=== PATIENT | female | born 1970 | race Caucasian/White ===

== ENCOUNTER 2020-09-01 16:29 | Emergency (ER) | payer BC ==
[~2020-09-01] VITALS: Ht 172.7 cm; Wt 117.9 kg
[2020-09-01 17:07] LABS: ABSOLUTE NEUTROPHILS 3.2 thou/uL (1.6-8.1); HEMOGLOBIN 14.1 gm/dL (12.0-15.0); NUCLEATED RBCS 0 /100WBC
[2020-09-01 17:11] LABS: ABSOLUTE EOSINOPHILS 0.2 thou/uL (0.0-0.7); ABSOLUTE LYMPHOCYTES 3.1 thou/uL (0.8-5.3); ABSOLUTE MONOCYTES 0.5 thou/uL (0.0-1.2); BASOPHILS 0.6 %; EOSINOPHILS 2.6 %; HEMATOCRIT 40.4 % (37.0-47.0); MCH 29.5 pg (26.0-34.0); MCHC 34.9 g/dL (28.0-37.0); MCV 84.6 fL (80.0-100.0); MONOCYTES 6.6 %; MPV 8.1 fl. (7.2-11.1); PLATELET COUNT* 325 thou/uL (150-400); POLYS 46.2 %; RBC 4.78 mil/uL (4.20-5.00)
[2020-09-01] MEDS ORDERED: PRAVACHOL40 MG PO (17:13)
[2020-09-01] MEDS ORDERED: ESCITALOPRAM (17:13)
[2020-09-01] MEDS ORDERED: BENAZEPRIL-HCT1 EA12 PO (17:13)
[2020-09-01] MEDS ORDERED: OMEPRAZOLE 20 M20 M1 PO (17:13)
[2020-09-01] MEDS ORDERED: METFORMIN HCL500 M3 PO (17:14)
[2020-09-01] MEDS ORDERED: BUSPIRONE HCL10 MG PO (17:14)
[2020-09-01 17:20] LABS: APTT 25.4 Seconds (25.0-31.3); INR 0.9; PROTIME 9.8 Seconds (9.20-11.50)
[2020-09-01 17:29] LABS: CALCIUM 8.7 mg/dL (8.5-10.1); POTASSIUM 3.5 mmol/L (3.5-5.1)
[2020-09-01 17:36] LABS: ALBUMIN 3.5 g/dL (3.4-5.0); TOTAL BILIRUBIN 0.3 mg/dL (<0.1-1.0); TOTAL PROTEIN 7.4 g/dL (6.4-8.2)
[2020-09-01] MEDS ORDERED: ACCU-CHEK COMB1 EACH SUBQ (18:15)
[2020-09-01] MEDS ORDERED: PREDNISONE 20 M20 M1 PO (19:48)
[2020-09-01] MEDS ORDERED: VENTOLIN HFA 1818 GM INH (19:48)
[2020-09-01] MEDS ORDERED: ZPAK PO (19:48)
[2020-09-01] MEDS ORDERED: NORCO 5-325 TA1 EAC2 PO (19:48)
[2020-09-01 20:00] VITALS: BP 178/85
--- NOTE | 2020-09-02 09:34 | EKG ---
[place] [address] ELECTROCARDIOGRAM REPORT Name: VERONICA WADE Room: [facility]#: [id number] Admission: 09/01/20 Attend Phys: Discharge: 09/01/20 Date of : 72 Date of Service: 09/01/20 1656 Report #: [id number] REPORT FOR: //name// [facility] ED Test Date: 2020-09-01 Test Time: 16:56:57 Pat Name: VERONICA WADE Department: Room: Gender: F Legal Referee: APL : 1970 Requested By: Martha Huston Order Number: [id number] MD: Jasper Villatoro Measurements Intervals [place] Rate: 77 P: 19 AR: 163 QRS: -24 QRSD: 95 T: 17 QT: 385 QTc: 436 Interpretive Statements Sinus rhythm Borderline left axis deviation Abnormal R-wave progression, early transition Baseline wander in lead(s) V6 Compared to ECG 09/06/2008 08:22:19 No significant changes Electronically Signed On 09-02-2020 9:34:40 CDT by Jasper Villatoro [email or web address] <ELECTRONICALLY SIGNED> By: Jasper Villatoro MD, FACC 09/02/20 0934 1656 1656 Jasper Villatoro MD, [facility] /EPI
== END 2020-09-01 20:57 | disposition home or self-care (01) ==
LOC: M.ERS 16:29
PROVIDERS: Nurse Practitioner Family
DX: U07.1 COVID-19 (principal); E11.65 Type 2 diabetes mellitus with hyperglycemia; I10 Essential (primary) hypertension; M79.7 Fibromyalgia; Z79.899 Other long term (current) drug therapy

== ENCOUNTER 2021-07-20 20:47 | Emergency (ER) | payer OTHER, BC ==
[~2021-07-20] VITALS: Ht 172.7 cm; Wt 122.5 kg
[~2021-07-20 20:47] MED LIST: ACCU-CHEK COMB1 EACH SUBQ; BENAZEPRIL-HCT1 EA12 PO; BUSPIRONE HCL10 MG PO; ESCITALOPRAM; METFORMIN HCL500 M3 PO; NORCO 5-325 TA1 EAC2 PO; OMEPRAZOLE 20 M20 M1 PO; PRAVACHOL40 MG PO; PREDNISONE 20 M20 M1 PO; VENTOLIN HFA 1818 GM INH; ZPAK PO
[2021-07-21 00:25] LABS: HEMATOCRIT 30.3 % (37.0-47.0); HEMOGLOBIN 9.7 gm/dL (12.0-15.0); MCH 23.3 pg (26.0-34.0); MCHC 32.2 g/dL (28.0-37.0); MCV 72.4 fL (80.0-100.0); MPV 7.4 fl. (7.2-11.1); RBC 4.18 mil/uL (4.20-5.00); RDW-CV 15.8 % (10.5-14.5); WBC 10.7 thou/uL (4.0-11.0)
[2021-07-21 00:32] LABS: CALCIUM 8.5 mg/dL (8.5-10.1)
[2021-07-21 00:35] LABS: POTASSIUM 2.8 mmol/L (3.5-5.1)
[2021-07-21 00:36] LABS: ALBUMIN 3.6 g/dL (3.4-5.0); TOTAL BILIRUBIN 0.3 mg/dL (<0.1-1.0); TOTAL PROTEIN 7.3 g/dL (6.4-8.2)
[2021-07-21 04:00] LABS: CALCIUM 8.2 mg/dL (8.5-10.1); POTASSIUM 3.4 mmol/L (3.5-5.1)
[2021-07-21] MEDS ORDERED: HYDROCODON-ACE1 EAC7 PO (04:16)
[2021-07-21] MEDS ORDERED: FLEXERIL PO (04:17)
[2021-07-21 04:58] VITALS: BP 178/78
--- NOTE | 2021-07-21 15:50 | EKG ---
[place] [address] ELECTROCARDIOGRAM REPORT Name: VERONICA WADE Room: [facility]#: [id number] Admission: 07/20/21 Attend Phys: Discharge: 07/21/21 Date of : [birth year] Date of Service: 07/21/21202 Report #: [id number] THIS REPORT FOR: //name// [facility] ED Test Date: 2021-07-21 Test Time: 02:03:26 Pat Name: VERONICA WADE Department: Room: Gender: F Social Work Coordinator: : 1970 Requested By: Yosvany King Order Number: [id number] MD: Kevan Wing Measurements Intervals [place] Rate: 73 P: 17 MT: 185 QRS: 79 QRSD: 99 T: 41 QT: 428 QTc: 472 Interpretive Statements Sinus rhythm Compared to ECG 09/01/2020 16:56:57 No significant changes Electronically Signed On 07-21-2021 15:50:34 CDT by Kevan Wing [email or web address] <ELECTRONICALLY SIGNED> By: Kevan Wing MD, [facility] 07/21/21 1550 2 2 Kevan Wing MD, FACC /EPI
== END 2021-07-21 05:00 | disposition home or self-care (01) ==
LOC: M.ERS 20:47
PROVIDERS: Emergency Medicine Emergency Medical Services
DX: M25.512 Pain in left shoulder (principal); I10 Essential (primary) hypertension; E10.9 Type 1 diabetes mellitus without complications; M79.7 Fibromyalgia; Z98.890 Other specified postprocedural states; Z79.51 Long term (current) use of inhaled steroids; Z79.4 Long term (current) use of insulin; Z79.899 Other long term (current) drug therapy; V89.2XXA Person injured in unspecified motor-vehicle accident, traffic, initial encounter; Y93.89 Activity, other specified; Y92.89 Other specified places as the place of occurrence of the external cause; Y99.8 Other external cause status